=== PATIENT | male | born 1955 | race Caucasian/White ===

== ENCOUNTER → 2016-11-02 | Outpatient (CLI) | payer BC ==
--- NOTE | 2016-11-02 14:38 | DIAGNOSTIC IMAGING REPORT ---
LEFT WRIST ULTRASOUND CLINICAL HISTORY: Left wrist pain. COMPARISON STUDY: None. FINDINGS: Real-time sonographic imaging of the wrists were performed with senior patient account representative images submitted. There is mild thickening of the left distal extensor carpi ulnaris tendon at the level of the wrist. This measures up to 5 mm in thickness. The right extensor carpi ulnaris tendon measures 3 mm in thickness. No associated fluid collections or masses. IMPRESSION: Mild thickening of the left distal extensor carpi ulnaris tendon suggestive of a tendinopathy. Electronically signed by: Torey Chi M.D. 11/02/2016 2:36 PM Dictated Date/Time: 11/02/2016 2:34 PM
== END | disposition home or self-care (01) ==
LOC: C.ULTRBC 14:02
PROVIDERS: ATTEND Orthopaedic Surgery
DX: M77.8 Other enthesopathies, not elsewhere classified (principal)